=== PATIENT | male | born 1930 | race Caucasian/White ===

== ENCOUNTER 2016-10-28 22:14 | Inpatient (IN) | payer MEDICARE ==
--- NOTE | ~2016-10-28 | CN ---
Consultation Report [facility] [address] [place]. [address] NAME: KEATON STERLING : 30 STATUS : ADM IN PAT#: [id number] AGE: 86 ADM/REG DATE : 10/28/16 MR#: [id number] REPORT SERV DATE: 10/29/16 DICTATED BY: WILLIE WILLIS DATE: 10/29/16 REPORT STATUS : Draft TRANSCRIBED BY: MODL DATE: 10/29/16 CARDIOLOGY CONSULTATION DATE OF CONSULTATION: INDICATION: Increasing falls, question seizure versus syncope, underlying ischemic cardiomyopathy, elevated troponins (0.25) and BNP (400 range). HISTORY: The patient is an 86-year-old gentleman who presented to the emergency room from [facility]. He had fallen and broken his shoulder and after release from the hospital, went to [facility] for further rehabilitation. He has had increasing episodes of dizziness. He believes he was told he may have had a seizure. He has had no PND or orthopnea. His major concern is that his "legs do not work." He states he first had developed weakness in the right lower extremity and then bilaterally. He states with rehab, he has now been able to stand but he does not have a good sense of why his legs are "not working." He has some mild diabetic neuropathy. He has had no lower extremity edema. He has had no chest discomfort, PND, or orthopnea. CURRENT HOME MEDICATIONS: Acetaminophen 650 q.6.h.; amlodipine 5 b.i.d.; 1 b.i.d.; colchicine 0.6 b.i.d.; cyanocobalamin 1000 per day; furosemide 40 a day; galantamine ER 8 mg at bedtime; hydrocodone APAP 5/325 q.6.h. p.r.n.; milk of magnesia 30 p.r.n.; mirtazapine 15 at bedtime; simvastatin 20 at bedtime; sotalol 160 b.i.d.; Carafate 1 g 3 times a day; tamsulosin 0.4 daily; tramadol 50 mg q.6.h. p.r.n.; trazodone 50 at bedtime; and warfarin as directed. ALLERGIES OR INTOLERANCES: Amiodarone (hypothyroidism). SOCIAL HISTORY: Negative for exposure to tobacco or alcohol. FAMILY HISTORY: Negative for coronary disease at a young age. 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 He has had elevated PSAs (greater than 10). He has had previous TIAs with chronic deep white matter ischemic changes. He has congestive heart block. He was upgraded to a WOOL PULLER-D. Pacing device in 2011 after his EF had declined to 30%. His last echo in 2013 shows EF back at 54%. He has persistent atrial fibrillation which is controlled on Betapace. He is on an appropriate anticoagulant therapy for stroke prophylaxis with a MOUNA-VASc score of 4. There is a history of systemic hypertension and hyperlipidemia. In the past, he has had esophagitis with esophageal strictures requiring dilation. He has a hiatal hernia. He has been evaluated by Dr. Ivory in ENT for vertigo. He has a history of gout. He had done in 2015 which were essentially normal. PHYSICAL EXAMINATION: Consultation Report [address] [address] NAME: KEATON STERLING : 30 STATUS : ADM IN [facility]#: [id number] AGE: 86 ADM/REG DATE : 10/28/16 MR#: [id number] REPORT SERV DATE: 10/29/16 DICTATED BY: WILLIE WILLIS DATE: 10/29/16 REPORT STATUS : Draft TRANSCRIBED BY: MODCarlo DATE: 10/29/16 GENERAL: Pleasant 86-year-old white male. VITAL SIGNS: Blood pressure 139/61, pulse 60 and regular, and respirations 18. SKIN: No xanthelasmas. HEENT: Normocephalic. There is no pallor. NECK: JVD is not elevated. CHEST: There is good AP movement. There are no crackles. CARDIAC: S1 normal, S2 is singular. There is no S3 or S4. There is a faint diastolic murmur at the left second interspace. ABDOMEN: Soft. EXTREMITIES: Without edema. No clubbing. NEUROLOGIC: No overt focal deficits. IMPRESSION: Elevated BNP and troponin. The patient appears euvolemic. He is on anticoagulant therapy. He has no antecedent history suggestive of cardiac ischemia and his ECG shows no evidence for acute repolarization changes. I would not pursue further invasive evaluation unless clinical symptoms change. The source of his lower extremity weakness is uncertain. Dr. Weinstein is evaluating this. I agree with his workup thus far. He is also going to check orthostatic blood pressure. I will have his device interrogated. Further recommendations as his course evolves. EDUIN/SHARON Willie Willis M.D. / [id number] CC: Keaton Irizarry Jr, MD Steven Dowlen, M.D. [facility]
--- NOTE | ~2016-10-28 | CN ---
Consultation Report [facility] [address] [place]. [address] NAME: AMBER GARCIA : 30 STATUS : ADM IN [facility]#: [id number] AGE: 86 ADM/REG DATE : 10/28/16 MR#: [id number] REPORT SERV DATE: 11/03/16 DICTATED BY: BRUCE SIMS DATE: 11/03/16 REPORT STATUS : Draft TRANSCRIBED BY: MODL DATE: 11/03/16 INPATIENT CONSULTATION NOTE DATE OF CONSULTATION: 11/03/2016 REASON FOR CONSULTATION: Postoperative urinary retention. HISTORY OF PRESENT ILLNESS: Mr. Garcia is an 86-year-old white gentleman, who was admitted to the hospital last week for syncope with ischemic cardiomyopathy. He had a pacemaker placed on 10/31/2016. Postoperatively, he has suffered from urinary retention and a More catheter was placed. The nurse is not sure how much urine was drained at the time of More catheter placement. The patient has been a long-standing urology patient. He saw Trevor Mortensen in the past and now sees Dr. Kelly. He has been on Flomax for several decades. The patient does not report any increasing urinary difficulties prior to hospital admission. Urology was consulted to assist with the management of the patient. PAST MEDICAL HISTORY: Class 2 chronic kidney disease, BPH, elevated PSA, TIA, congestive heart block, atrial fibrillation, esophageal strictures, hypertension, hyperlipidemia, vertigo, gout. PAST SURGICAL HISTORY: Pacemaker placement, esophageal dilation. FAMILY HISTORY: No urologic problems. SOCIAL HISTORY: Does not drink, smoke, or use illicit drugs. ALLERGIES: AMIODARONE. MEDICATIONS: Aspirin, amiodarone, benazepril, clotrimazole, furosemide, galantamine, Levaquin, magnesium oxide, mirtazapine, phenazopyridine, simvastatin, spironolactone, sucralfate, tamsulosin 0.4 mg daily. REVIEW OF SYSTEMS: Thorough 13-point review of systems were performed by me and if not noted be positive in history of present illness or past medical history, negative. PHYSICAL EXAMINATION: GENERAL: A thin male in no distress. VITAL SIGNS: Temperature 96.9, pulse 79, respiration rate 18, blood pressure 150/81. HEENT: Normocephalic, atraumatic. Eyes are anicteric. Nares are patent. Oropharynx is clear. NECK: Supple. HEART: Regular rate and rhythm. ABDOMEN: Soft, nonpalpable, nontender bladder. No CVA tenderness. Consultation Report [place] [address] [place]. [address] NAME: AMBER GARCIA : 30 STATUS : ADM IN PAT#: [id number] AGE: 86 ADM/REG DATE : 10/28/16 MR#: [id number] REPORT SERV DATE: 11/03/16 DICTATED BY: BRUCE SIMS DATE: 11/03/16 REPORT STATUS : Draft TRANSCRIBED BY: SHARON DATE: 11/03/16 INTEGUMENT: Warm. GENITOURINARY: Indwelling More catheter, draining clear yellow urine to gravity drainage. PSYCHIATRIC: Pleasant and appropriate. LABORATORIES: Creatinine 1.24. Hematocrit 32.6. ASSESSMENT: 1. Postoperative urinary retention. 2. Benign prostatic hyperplasia with obstruction. PLAN: The etiology for his postoperative retention is likely multifactorial including recent anesthesia, narcotics, recumbency, pre-existing BPH, etc. I would recommend leaving the More catheter at least five days total before a voiding trial either here in the hospital or in Dr. Kelly's saw office. I will alert Dr. Kelyl to the patient's presence. My thanks to Dr. Willett for asking me to participate in Mr. Fox's care. RAC/SHARON Bruce Sims M.D. / [id number] CC: Lary Guajardo III, M.D.
--- NOTE | ~2016-10-28 | DS ---
Discharge Summary [facility] [address] [place]. [address] NAME: KEATON STERLING : 30 STATUS : DIS IN PAT#: [id number] AGE: 86 ADM/REG DATE : 10/28/16 MR#: [id number] REPORT SERV DATE: 11/06/16 DICTATED BY: JR. IRIZARRY WILLIAM JOHN DATE: 11/05/16 REPORT STATUS : Draft TRANSCRIBED BY: MODL DATE: 11/05/16 ADMISSION DATE: 10/28/2016 DISCHARGE DATE: 11/05/2016 DISCHARGE DIAGNOSES: Include: 1. Ventricular tachycardia. 2. Status post permanent pacemaker/ICD. 3. Noncritical coronary artery disease with chronic systolic heart failure, ejection fraction of 40%. 4. Urinary retention. 5. Atrial fibrillation. 6. Urinary tract infection with Escherichia coli and Proteus mirabilis. 7. Hyperlipidemia. 8. Hypertension. OPERATIONS, PROCEDURES, AND TREATMENTS: Include: 1. CT of the brain done 10/29/2016, which showed stable atrophy without intracranial bleed. 2. Cardiac catheterization by Dr. Guardado on 11/01/2016 showed [id number] non-flow- limiting coronary disease, the slit like angiography lesion in ostial left main. Intravascular ultrasound demonstrated no evidence of significant atherosclerotic disease in this segment. There was mildly reduced left ventricular systolic function with ejection fraction 40% with global hypokinesis. There was normal left ventricular end-diastolic filling pressure. 3. Echocardiogram done 10/29/2016, technically difficult study with normal left ventricular size and systolic function. Ejection fraction 50% to 55% with mild concentric left ventricular hypertrophy. Normal right ventricular size and systolic function. Severe left atrial enlargement. Aortic valve sclerosis without stenosis. No evidence of pericardial effusion. 4. Chest x-ray done 10/31/2016 showed newly placed PICC line, right tip in good position, stable cardiomegaly, pacemaker/AICD in good position. CONSULTING PHYSICIANS: Include Dr. Willis of Cardiology and Dr. Umanzor of Urology. DISCHARGE MEDICATIONS: Include: 1. Aspirin 325 mg orally daily. 2. Amiodarone 200 mg orally twice a day. 3. Lotensin 10 mg orally daily. 4. Coreg 3.125 daily. 5. Lotrimin topically twice a day. 6. Lasix 20 mg daily. 7. Neurontin 100 twice a day. 8. Razadyne 8 mg at bedtime. 9. Mag oxide 400 daily. 10.Remeron 15 at the hour of sleep. 11.Protonix 40 daily. Discharge Summary [address] [address] NAME: KEATON STERLING : 30 STATUS : DIS IN PAT#: [id number] AGE: 86 ADM/REG DATE : 10/28/16 MR#: [id number] REPORT SERV DATE: 11/06/16 DICTATED BY: JR. IRIZARRY WILLIAM ALMITA DATE: 11/05/16 REPORT STATUS : Draft TRANSCRIBED BY: MODL DATE: 11/05/16 12.Simvastatin 20 daily. 13.Aldactone 12.5 daily. 14.Sucralfate 1 g before meals. 15.Flomax 0.4 daily. 16.Coumadin 5 mg daily. HOSPITAL COURSE: The patient was an 86-year-old gentleman, transferred from [facility] by Dr. Rojas on 10/28/2016. The patient presented to emergency room at [facility] after two to three episodes of a lightheaded falling sensation while at a rehabilitation facility. Initial, workup showed a troponin of 0.19. All other tests were normal. Dr. Melchor of Cardiology was consulted and felt the hospitalist would be most appropriate to handle this transfer. Initial exam showed a temperature of 99.2, heart rate 64, respiratory rate 16, blood pressure 148/53. The physical exam was normal. The patient was admitted to the Hospitalist Service on . Orthostatic vital signs were done. There was some mild orthostasis. His pacemaker was interrogated. It showed shock was initiated on 6 events. The patient subsequently underwent echocardiogram and unfortunately went into a torsades de pointes type of rhythm, handled appropriately by Dr. Kelley. He was seen in consultation by Cardiology, underwent cardiac catheterization with a re-interrogation of his pacemaker. The patient was started on amiodarone and has had no further events. In addition, the patient had urinary retention, was seen by Dr. Umanzor, who recommended starting on Flomax and have a voiding trial in approximately one week by Dr. Kelly. The patient also had a urinary tract infection for which he completed a full dose of Levaquin while in the hospital. The patient also has atrial fibrillations, on Coumadin, which was recently resumed. His INR is presently 1.7. The patient will be discharged to [facility] today 10/28/2016 in good condition. FOLLOWUP ISSUES: 1. Voiding trial in about one week ago by Dr. Kelly. 2. Follow up with Dr. Willis in four weeks. 3. Coumadin monitoring. DIET: Cardiac. ACTIVITY: As tolerated. For discharge exam and laboratory, please see daily progress note. </ADDENDUM/> This discharge took 37 minutes for patient encounter, coordination of care, and documentation. Discharge Summary [place] [id number] [facility] [place]. [address] NAME: KEATON STERLING : 30 STATUS : DIS IN PAT#: [id number] AGE: 86 ADM/REG DATE : 10/28/16 MR#: [id number] REPORT SERV DATE: 11/06/16 DICTATED BY: JR. IRIZARRY WILLIAM JOHN DATE: 11/05/16 REPORT STATUS : Draft TRANSCRIBED BY: SHARON DATE: 11/05/16 GEORGIANA/SHARON Keaton Irizarry Jr, MD / [id number] / [id number] CC: Keaton Irizarry Jr, MD Steven Dowlen, M.D.
--- NOTE | ~2016-10-28 | HP ---
History And Physical [place] [id number] [facility] [place]. [address] NAME: AMBER GARCIA : 30 STATUS : ADM IN [facility]#: [id number] AGE: 86 ADM/REG DATE : 10/28/16 MR#: [id number] REPORT SERV DATE: 10/29/16 DICTATED BY: MANNY BERG DATE: 10/29/16 REPORT STATUS : Draft TRANSCRIBED BY: MODL DATE: 10/29/16 DATE OF ADMISSION: 10/28/2016 CHIEF COMPLAINT: This was a patient I had accepted in transfer from [facility] Emergency Room after I spoke with Dr. Bob levy. HISTORY OF PRESENT ILLNESS: Briefly, the patient presented to the emergency there after two or three episodes in the last day or so of a sensation of falling and lightheadedness. He was in [facility] for rehabilitation after he was released from [facility]. He had had a fall with a broken shoulder. As mentioned above, he had two or three episodes where he was apparently dizzy with a sensation of falling, although he did not actually fall down or pass out. So, he was taken to the emergency room there where he denied having any chest pain, lower extremity edema, or other symptoms. Initial workup showed a troponin of 0.19 and a potassium of 3.9. All other tests were within normal limits. His chest x-ray was unremarkable. EKG showed a paced rhythm. They had initially spoken with Dr. Melchor, chip tester, and she felt that it will be best if the hospitalist admitted this patient. At that time, his blood pressure was 140/60, heart rate 60, and room air oxygen saturations were 97%. They had called us to accept him in transfer. At the time of my evaluation here after he arrived, he denied any chest pain, palpitations, or orthopnea. He had no cough, hemoptysis, night sweats, or weight loss. He has not had any recent falls or loss of consciousness, although he had 3 syncopal episodes. He had no fevers, chills, nausea, vomiting, diarrhea, or diaphoresis. He had no hematemesis, hematochezia, or hematuria. No other history of recent travel or exposures other than those mentioned above. PAST MEDICAL HISTORY: Significant for history of hypertension, coronary artery disease with a CAD, catheterization done in 2012, history of systolic heart failure with an ejection fraction of 30%. He also has a biventricular AICD placed, history of BPH and dyslipidemia. He has history of atrial fibrillation, on anticoagulation with warfarin. SOCIAL HISTORY: He does not smoke, drink, or use recreational drugs. FAMILY HISTORY: Noncontributory. MEDICATIONS: At home were reviewed by me in the chart today and reordered by me. REVIEW OF SYSTEMS: As in the history of present illness. All other systems were reviewed in detail and are quite unremarkable. PHYSICAL EXAMINATION: GENERAL: This is a pleasant 86-year-old gentleman, not in any acute distress. HEENT: Head is atraumatic, normocephalic. He is alert, awake, oriented to time, place, and person. His pupils are equal, reacting to light and accommodating. External ocular muscles are intact. Membranes are moist and pink. Sclerae are nonicteric. History And Physical [address] [address] NAME: AMBER GARCIA : 30 STATUS : ADM IN [facility]#: [id number] AGE: 86 ADM/REG DATE : 10/28/16 MR#: [id number] REPORT SERV DATE: 10/29/16 DICTATED BY: MANNY BERG DATE: 10/29/16 REPORT STATUS : Draft TRANSCRIBED BY: SHARON DATE: 10/29/16 NECK: Supple with no jugular venous distention, lymphadenopathy, or thyromegaly. LUNGS: Clear to auscultation with no wheezes, rubs, or crackles. HEART: Heart sounds were regular with no murmurs, rubs, or gallops. ABDOMEN: Soft, nontender. Bowel sounds are present. EXTREMITIES: Showed no cyanosis, clubbing, or edema. NEUROLOGIC: Grossly intact. No focal sensory or motor deficits. Higher functions appeared intact. VITAL SIGNS: Here showed a temperature of 99.2, pulse 64, respirations 16, blood pressure was 148/53, oxygen saturations were 93% on room air. LABORATORY DATA: Laboratory data and other information that accompanied the patient from [facility] were reviewed by me in the chart today. IMPRESSION: 1. Presyncope. 2. Elevated troponin. 3. Hypertension. 4. Coronary artery disease. 5. History of systolic congestive heart failure with an ejection fraction of 30%. 6. Biventricular automatic implantable-cardioverter defibrillator placement. 7. Chronic atrial fibrillation, on anticoagulation. 8. Hypokalemia. PLAN: We will admit Mr. Garcia to the Hospitalist Service with telemetry for a 24-hour observation. We will follow serial troponin levels. Consult Cardiology with Dr. Willis, see him in the morning. We will go ahead and get an echocardiogram in the morning and check his BNP. We will also need to check his PT and INR right away and then start him on heparin if he is subtherapeutic. Otherwise, we will hold his warfarin for now. We will check chemistry, electrolytes, and replace in the morning. I have discussed the above plans with the patient, his questions were answered, and he is agreeable to the above recommendations. Hospitalist Service will be following him during his stay here. MARY Manny Berg M.D. / [id number]
--- NOTE | ~2016-10-28 | IDS ---
Interim Discharge Summary [facility] [address] [place]. [address] NAME: AMBER GARCIA : 30 STATUS : ADM IN PAT#: [id number] AGE: 86 ADM/REG DATE : 10/28/16 MR#: [id number] REPORT SERV DATE: 11/04/16 DICTATED BY: ARLETH BAUTISTA DATE: 11/03/16 REPORT STATUS : Draft TRANSCRIBED BY: MODL DATE: 11/03/16 ADMISSION DATE: 10/28/2016 DISCHARGE DATE: DISCHARGE DIAGNOSES: 1. Ventricular tachycardia, currently silent on amiodarone, status post automated implantable cardioverter-defibrillator and shocks with normal device function, status post cardiac catheterization performed during this hospitalization on 11/01/2016 showing mild to moderate non-flow limiting coronary artery disease, mild reduced left ventricular systolic function with ejection fraction 40% with global hypokinesis and normal left ventricular end-diastolic filling pressure. 2. History of atrial fibrillation, on Coumadin anticoagulation. 3. Chronic congestive heart failure, [place] functional class 3. 4. Hypertension. 5. Status post pacer and automated implantable cardioverter-defibrillator. 6. Hyperlipidemia. 7. Urinary tract infection. 8. Urinary retention. 9. History of gout. 10.BPH. 11.Bilateral lower extremity pain, probable peripheral neuropathy. 12.Gout. CONSULTANTS ON THE CASE: 1. Devonte Willis M.D. 2. Hailee Melchor M.D., Cardiology. 3. Urology, Dr. Kelly. 4. He has been seen by Dr. Deluna, Urology. PROCEDURES DONE DURING THIS HOSPITALIZATION: Include cardiac catheterization performed on 11/01/2016 showing nonobstructive coronary artery disease, also on pacemaker interrogation as well. Also during this hospitalization, the patient underwent chest x-ray for PICC line placement, portable on 10/31/[address] of the brain without contrast on 10/29/2016 showing no acute intracranial abnormalities identified. Also, the patient has been having initial troponin of 0.25, 0.1, and 0.16. His TSH was 0.289. His PSA was 11.8. His BNP 412. His white count was 6.5, hemoglobin 10.9, hematocrit 32.6, platelets 190. His INR was 1.4. His UA has been positive. His urine cultures grew on admission E. coli and Proteus mirabilis, sensitive to fluoroquinolone. HOSPITAL COURSE: Mr. Garcia is an 86 years old gentleman, who has been admitted on 10/29/[address] Weinstein's service as a transfer from [facility] Emergency Room for episodes of lightheadedness and near syncope that has been reported at the [facility], where he has been discharged after he has been released from [facility] for rehabilitation. He had couple of weeks ago a fall with broken right shoulder and since the fall, he went to [facility] for inpatient rehab. As mentioned, he did there have some episodes of near syncope. He had been taken to the emergency room there and Interim Discharge Summary [address] [address] NAME: AMBER GARCIA : 30 STATUS : ADM IN PAT#: [id number] AGE: 86 ADM/REG DATE : 10/28/16 MR#: [id number] REPORT SERV DATE: 11/04/16 DICTATED BY: ARLETH BAUTISTA DATE: 11/03/16 REPORT STATUS : Draft TRANSCRIBED BY: SHARON DATE: 11/03/16 the past initial workup showed a troponin of 0.19 and as a result, after talking with Dr. Melchor, Cardiology, it was felt that the patient has to be transferred to [facility] and admitted to Hospitalist Service. The patient had been admitted initially to telemetry observation under Dr. Chito Weinstein service. He underwent a CT scan of the brain, which has been negative and an echo has been ordered as well. His pacemaker has been interrogated and during the stay in the CDU, the patient went in multifocal ventricular tachycardia, prompted patient to be transferred to the CCU and consult Cardiology while the patient has been transferred to CCU by Dr. Jass Kelley, who was continuing to see the patient. He has been seen by Dr. Willis. The patient has been placed on amiodarone drip and then he has been scheduled for a cardiac catheterization. The patient underwent a cardiac catheterization with Dr. Guardado on 11/01/2016 showing just [id number], no flow-limiting coronary artery disease and an ejection fraction of 40% with global hypokinesis. For his polymorphic ventricular tachycardia, he has been changed to amiodarone drip, is unclear if sotalol that patient was on before this episode has started could contribute to these, but nevertheless, the patient has been taken off sotalol and placed on amiodarone drip and currently, his ventricular tachycardia has been silent on amiodarone drip. The patient developed some urinary retention. His More has been discontinued in the ICU, but he has been replaced due to his urinary retention. He does have a history of BPH, so Dr. Deluna from Urology Service has seen the patient and recommended for right now keep the More catheter for at least 5 days before voiding trials, either in hospital or in Dr. Kelly's office and continue Flomax. He has been diagnosed with urinary tract infection on admission. He has been placed on Levaquin on 10/31/2016 and he is continuing to receive Levaquin. The patient has been transferred from the CCU to floor on 11/03/2016 when I resumed care of the patient. He is extremely weak, and he has these bilateral lower extremity pain and weakness and he said in his last fall, the legs were not working properly. He does have possibly some peripheral neuropathy, and he does have a history of gout. It is important to know that it started when patient had significant bilateral lower extremity edema. He does not have the extremity edema any longer, but he still has these bilateral lower extremity pain and weakness. We have placed the patient on lower doses of steroids as well as some Neurontin, and PT evaluation and treatment has been requested as well. We have restarted him on Coumadin today, and we will place a rifle case repairer consult for [facility] facility re- evaluation. CURRENT MEDICATIONS: Include: Cordarone, aspirin, Lotensin, Lasix, galantamine, Levaquin, magnesium oxide, Remeron, phenazopyridine, prednisone, Zocor, Aldactone, Carafate, Flomax, and Neurontin. My partner is going to start seeing Mr. Jose Solorio from 11/05/2016. CF/MODL Arleth Bautista M.D. / [id number] Interim Discharge Summary [place] [address] [facility] [id number] NAME: AMBER GARCIA : 30 STATUS : ADM IN PAT#: [id number] AGE: 86 ADM/REG DATE : 10/28/16 MR#: [id number] REPORT SERV DATE: 11/04/16 DICTATED BY: ARLETH BAUTISTA DATE: 11/03/16 REPORT STATUS : Draft TRANSCRIBED BY: MODCarlo DATE: 11/03/16 CC: Lary Jarrett M.D.
[~2016-10-28 22:14] MED LIST: ACT300 PO; BENICAR HCT1 TA2 PO; BETAP120 PO; BETAPACE160 MG PO; BETAPACE80 PO; COREG12 PO; COREG25 PO; COZ50 PO; FLOMAX4 PO; HYZAAR 100/25 T1 TAB PO; HYZAAR 50/12.51 TAB PO; JANTOVEN4 MG PO; KAPIDEX60 MG PO; LIPITOR10 PO; PRILO PO; SLOWMAG PO; SPIRO25 PO; SPIRO50 PO; SUCR PO; TOPXL100 PO; ZANTAC 150 PO; ZANTAC150 MG PO; ZOCOR20 PO; ZOCOR40 PO
[2016-10-29] MEDS ORDERED: NORV5 PO (00:17)
[2016-10-29] MEDS ORDERED: LOTRIMIN-MYCELE15 GM TOP (00:17)
[2016-10-29] MEDS ORDERED: COLCH6 PO (00:18)
[2016-10-29] MEDS ORDERED: B121000P SC (00:19)
[2016-10-29] MEDS ORDERED: RAZAER8 PO (00:20)
[2016-10-29] MEDS ORDERED: L40 PO (00:20)
[2016-10-29] MEDS ORDERED: REM15 PO (00:21)
[2016-10-29] MEDS ORDERED: NORCO1 TA1 PO ×2 (00:21→00:28)
[2016-10-29] MEDS ORDERED: ZOCOR20 PO (00:23)
[2016-10-29] MEDS ORDERED: BETAPACE160 MG PO (00:23)
[2016-10-29] MEDS ORDERED: SUCR PO (00:24)
[2016-10-29] MEDS ORDERED: FLOMAX4 PO (00:24)
[2016-10-29] MEDS ORDERED: C1 PO (00:26)
[2016-10-29] MEDS ORDERED: COUMADIN3 MG PO (00:26)
[2016-10-29] MEDS ORDERED: 8 HOUR650 MG PO (00:27)
[2016-10-29] MEDS ORDERED: MOMUD PO (00:29)
[2016-10-29] MEDS ORDERED: ULTRAM50 PO (00:29)
[2016-10-29] MEDS ORDERED: TRAZ50 PO (00:29)
[2016-10-29 02:06] LABS: CALCIUM, SERUM 8.7 MG/DL (8.5-10.4); CHLORIDE, SERUM 103 MMOL/L (96-112); CO2 (CARBON DIOXIDE) 30 MMOL/L (24-34); SGOT(AST) 14 U/L (5-40); SGPT(ALT) 23 U/L (5-65); SODIUM, SERUM 143 MMOL/L (135-148); TOTAL BILIRUBIN 0.9 MG/DL (0-1.2); TOTAL PROTEIN 6.7 G/DL (6.0-8.5)
[2016-10-29 02:08] LABS: A/G RATIO 0.7 (0.7-1.9); ALBUMIN 2.8 G/DL (3.5-5.0); ALKALINE PHOSPHATASE 102 U/L (45-117); BUN (BLOOD UREA NITROGEN) 12 MG/DL (6-23); CREATININE 1.19 MG/DL (0.70-1.30); GFR AFRICAN AMERICAN 64 ML/MIN (>=60); GFR NON AFRICAN AMERICAN 55 ML/MIN (>=60); GLOBULIN 3.9 G/DL (2.5-4.1); GLUCOSE, SERUM 93 MG/DL (60-99); POTASSIUM, SERUM 3.2 MMOL/L (3.5-5.3)
[2016-10-29 02:09] LABS: TROPONIN I 0.25 NG/ML (<0.05)
[2016-10-29 06:10] LABS: BASOPHILS 0.2 %; BASOPHILS ABSOLUTE 0.02 10/3/uL (0.0-0.16); EOSINOPHILS 0.4 %; EOSINOPHILS ABSOLUTE 0.04 10/3/uL (0.0-0.53); IMMATURE GRANULOCYTES 0.2 %; IMMATURE GRANULOCYTES ABSOLUTE 0.02 10/3/uL (0.0-0.11); LYMPHOCYTES 16.1 %; LYMPHOCYTES ABSOLUTE 1.53 10/3/uL (0.67-4.30); MEAN CORPUS HGB CONC 33.7 g/dL (32.0-36.0); MEAN CORPUSCULAR HEMOGLOB 28.2 pg (26.0-34.0); MEAN PLATELET VOLUME 9.2 fL (9.2-13.0); MONOCYTES 7.9 %; MONOCYTES ABSOLUTE 0.75 10/3/uL (0.21-1.20); NEUTROPHILS 75.2 %; NEUTROPHILS ABSOLUTE 7.14 10/3/uL (2.02-8.40); RBC DISTRIBUTION WIDTH 14.1 % (12.0-16.0); RED CELL COUNT 3.65 10/6/uL (4.7-6.1); WHITE BLOOD CELLS 9.5 10/3/uL (4.5-10.5)
[2016-10-29 06:12] LABS: HEMATOCRIT 30.6 % (40.0-51.0); HEMOGLOBIN 10.3 g/dL (13.6-17.8); MANUAL DIFF NO %; MEAN CORPUSCULAR VOLUME 83.8 fL (80-100); PLATELET COUNT 182 10/3/uL (150-400)
[2016-10-29 06:17] LABS: INTERNATIONAL NORMAL RATI 2.2 UNITS (-); PROTIME (NOT ORD) 23.9 SEC (12.0-14.5)
[2016-10-29 06:30] LABS: BUN (BLOOD UREA NITROGEN) 11 MG/DL (6-23); CALCIUM, SERUM 8.2 MG/DL (8.5-10.4); CHLORIDE, SERUM 106 MMOL/L (96-112); CO2 (CARBON DIOXIDE) 31 MMOL/L (24-34); CREATININE 1.15 MG/DL (0.70-1.30); GFR AFRICAN AMERICAN 66 ML/MIN (>=60); GFR NON AFRICAN AMERICAN 57 ML/MIN (>=60); GLUCOSE, SERUM 93 MG/DL (60-99); POTASSIUM, SERUM 3.5 MMOL/L (3.5-5.3); SODIUM, SERUM 144 MMOL/L (135-148)
[2016-10-29 06:31] LABS: TROPONIN I 0.21 NG/ML (<0.05)
[2016-10-29 12:58] LABS: ULTRASENSITIVE TSH 0.289 MCIU/ML (0.358-3.740)
[2016-10-30 05:34] LABS: BASOPHILS 0.1 %; BASOPHILS ABSOLUTE 0.01 10/3/uL (0.0-0.16); EOSINOPHILS 1.1 %; EOSINOPHILS ABSOLUTE 0.08 10/3/uL (0.0-0.53); HEMATOCRIT 31.9 % (40.0-51.0); HEMOGLOBIN 10.6 g/dL (13.6-17.8); IMMATURE GRANULOCYTES 0.4 %; IMMATURE GRANULOCYTES ABSOLUTE 0.03 10/3/uL (0.0-0.11); LYMPHOCYTES 21.1 %; LYMPHOCYTES ABSOLUTE 1.51 10/3/uL (0.67-4.30); MEAN CORPUS HGB CONC 33.2 g/dL (32.0-36.0); MEAN CORPUSCULAR HEMOGLOB 28.4 pg (26.0-34.0); MEAN CORPUSCULAR VOLUME 85.5 fL (80-100); MEAN PLATELET VOLUME 9.3 fL (9.2-13.0); MONOCYTES 9.7 %; MONOCYTES ABSOLUTE 0.69 10/3/uL (0.21-1.20); NEUTROPHILS 67.6 %; NEUTROPHILS ABSOLUTE 4.83 10/3/uL (2.02-8.40); PLATELET COUNT 193 10/3/uL (150-400); RBC DISTRIBUTION WIDTH 14.1 % (12.0-16.0); RED CELL COUNT 3.73 10/6/uL (4.7-6.1); WHITE BLOOD CELLS 7.2 10/3/uL (4.5-10.5)
[2016-10-30 05:36] LABS: INTERNATIONAL NORMAL RATI 2.1 UNITS (-); MANUAL DIFF NO %; PROTIME (NOT ORD) 23.6 SEC (12.0-14.5)
[2016-10-30 05:43] LABS: BUN (BLOOD UREA NITROGEN) 13 MG/DL (6-23); CALCIUM, SERUM 8.4 MG/DL (8.5-10.4); CHLORIDE, SERUM 108 MMOL/L (96-112); CO2 (CARBON DIOXIDE) 30 MMOL/L (24-34); CREATININE 1.12 MG/DL (0.70-1.30); GFR AFRICAN AMERICAN 69 ML/MIN (>=60); GFR NON AFRICAN AMERICAN 59 ML/MIN (>=60); GLUCOSE, SERUM 93 MG/DL (60-99); POTASSIUM, SERUM 3.3 MMOL/L (3.5-5.3); SODIUM, SERUM 145 MMOL/L (135-148)
[2016-10-30 15:36] LABS: OSMOLALITY, URINE 409 MOSM/KG (50-1200)
[2016-10-31 04:23] LABS: INTERNATIONAL NORMAL RATI 2.5 UNITS (-); PROTIME (NOT ORD) 26.5 SEC (12.0-14.5)
[2016-10-31 04:32] LABS: BUN (BLOOD UREA NITROGEN) 13 MG/DL (6-23); CALCIUM, SERUM 8.3 MG/DL (8.5-10.4); CHLORIDE, SERUM 104 MMOL/L (96-112); CREATININE 1.08 MG/DL (0.70-1.30); GFR AFRICAN AMERICAN 72 ML/MIN (>=60); GFR NON AFRICAN AMERICAN 62 ML/MIN (>=60); GLUCOSE, SERUM 88 MG/DL (60-99); POTASSIUM, SERUM 3.8 MMOL/L (3.5-5.3); SODIUM, SERUM 139 MMOL/L (135-148)
[2016-10-31 04:34] LABS: CO2 (CARBON DIOXIDE) 25 MMOL/L (24-34)
[2016-10-31 11:47] LABS: ASCORBIC ACID (UR NOT ORDER) NEG (NEG); BILIRUBIN, URINE NEGATIVE (NEG); KETONE, URINE NEGATIVE (NEG); LEUKOCYTE ESTERASE(NOT OR MOD (NEG)
[2016-10-31 11:50] LABS: WBC (NOT ORDERED) (RFLEX) > 182 (0-5)
[2016-10-31 13:38] LABS: INTERNATIONAL NORMAL RATI 1.9 UNITS (-)
[2016-10-31 13:41] LABS: PROTIME (NOT ORD) 21.2 SEC (12.0-14.5)
[2016-11-01 04:44] LABS: BASOPHILS 0.1 %; BASOPHILS ABSOLUTE 0.01 10/3/uL (0.0-0.16); EOSINOPHILS 0.4 %; EOSINOPHILS ABSOLUTE 0.04 10/3/uL (0.0-0.53); HEMOGLOBIN 11.6 g/dL (13.6-17.8); IMMATURE GRANULOCYTES 0.5 %; IMMATURE GRANULOCYTES ABSOLUTE 0.05 10/3/uL (0.0-0.11); LYMPHOCYTES 12.8 %; LYMPHOCYTES ABSOLUTE 1.39 10/3/uL (0.67-4.30); MEAN CORPUS HGB CONC 32.9 g/dL (32.0-36.0); MEAN CORPUSCULAR HEMOGLOB 28.2 pg (26.0-34.0); MEAN CORPUSCULAR VOLUME 85.7 fL (80-100); MEAN PLATELET VOLUME 9.7 fL (9.2-13.0); MONOCYTES 5.9 %; MONOCYTES ABSOLUTE 0.64 10/3/uL (0.21-1.20); NEUTROPHILS 80.3 %; NEUTROPHILS ABSOLUTE 8.69 10/3/uL (2.02-8.40); PLATELET COUNT 223 10/3/uL (150-400); RBC DISTRIBUTION WIDTH 14.1 % (12.0-16.0); RED CELL COUNT 4.12 10/6/uL (4.7-6.1)
[2016-11-01 04:46] LABS: HEMATOCRIT 35.3 % (40.0-51.0); MANUAL DIFF NO %; WHITE BLOOD CELLS 10.8 10/3/uL (4.5-10.5)
[2016-11-01 04:55] LABS: INTERNATIONAL NORMAL RATI 1.4 UNITS (-)
[2016-11-01 05:00] LABS: PROTIME (NOT ORD) 17.3 SEC (12.0-14.5)
[2016-11-01 05:08] LABS: BUN (BLOOD UREA NITROGEN) 16 MG/DL (6-23); CHLORIDE, SERUM 105 MMOL/L (96-112); CO2 (CARBON DIOXIDE) 26 MMOL/L (24-34); CREATININE 1.09 MG/DL (0.70-1.30); GFR AFRICAN AMERICAN 71 ML/MIN (>=60); GFR NON AFRICAN AMERICAN 61 ML/MIN (>=60); GLUCOSE, SERUM 96 MG/DL (60-99); HDL CHOLESTEROL 40 MG/DL (> 39); POTASSIUM, SERUM 3.7 MMOL/L (3.5-5.3); SODIUM, SERUM 142 MMOL/L (135-148)
[2016-11-01 05:11] LABS: CHOL/HDL RATIO(NOT ORDER) 2.7 (0-5); CHOLESTEROL 107 MG/DL (< 200); LDL CHOLESTEROL 51 MG/DL (< 130); NON-HDL CHOLESTEROL 67 MG/DL (< 160); TRIGLYCERIDE 84 MG/DL (< 150)
[2016-11-01 09:37] LABS: ASCORBIC ACID (UR NOT ORDER) NEG (NEG); BILIRUBIN, URINE NEGATIVE (NEG); KETONE, URINE TRACE MG/DL (NEG); LEUKOCYTE ESTERASE(NOT OR MOD (NEG); WBC (NOT ORDERED) (RFLEX) 41 (0-5)
[2016-11-02 04:22] LABS: BASOPHILS 0.1 %; BASOPHILS ABSOLUTE 0.01 10/3/uL (0.0-0.16); EOSINOPHILS ABSOLUTE 0.08 10/3/uL (0.0-0.53); HEMOGLOBIN 10.5 g/dL (13.6-17.8); IMMATURE GRANULOCYTES 0.4 %; IMMATURE GRANULOCYTES ABSOLUTE 0.03 10/3/uL (0.0-0.11); LYMPHOCYTES 14.9 %; LYMPHOCYTES ABSOLUTE 1.16 10/3/uL (0.67-4.30); MEAN CORPUS HGB CONC 33.4 g/dL (32.0-36.0); MEAN CORPUSCULAR VOLUME 83.7 fL (80-100); MEAN PLATELET VOLUME 9.2 fL (9.2-13.0); MONOCYTES 8.7 %; MONOCYTES ABSOLUTE 0.68 10/3/uL (0.21-1.20); NEUTROPHILS 74.9 %; NEUTROPHILS ABSOLUTE 5.82 10/3/uL (2.02-8.40); PLATELET COUNT 185 10/3/uL (150-400); RBC DISTRIBUTION WIDTH 14.3 % (12.0-16.0); RED CELL COUNT 3.75 10/6/uL (4.7-6.1); WHITE BLOOD CELLS 7.8 10/3/uL (4.5-10.5)
[2016-11-02 04:27] LABS: INTERNATIONAL NORMAL RATI 1.4 UNITS (-); PROTIME (NOT ORD) 17.4 SEC (12.0-14.5)
[2016-11-02 04:35] LABS: HEMATOCRIT 31.4 % (40.0-51.0); MANUAL DIFF NO %
[2016-11-02 04:39] LABS: BUN (BLOOD UREA NITROGEN) 14 MG/DL (6-23); CALCIUM, SERUM 8.7 MG/DL (8.5-10.4); CHLORIDE, SERUM 106 MMOL/L (96-112); CO2 (CARBON DIOXIDE) 24 MMOL/L (24-34); CREATININE 0.97 MG/DL (0.70-1.30); GFR AFRICAN AMERICAN 82 ML/MIN (>=60); GFR NON AFRICAN AMERICAN 70 ML/MIN (>=60); GLUCOSE, SERUM 115 MG/DL (60-99); POTASSIUM, SERUM 3.8 MMOL/L (3.5-5.3); SODIUM, SERUM 141 MMOL/L (135-148)
[2016-11-03 05:20] LABS: BASOPHILS 0 %; EOSINOPHILS 0.2 %; EOSINOPHILS ABSOLUTE 0.01 10/3/uL (0.0-0.53); HEMATOCRIT 32.6 % (40.0-51.0); HEMOGLOBIN 10.9 g/dL (13.6-17.8); IMMATURE GRANULOCYTES 1.1 %; IMMATURE GRANULOCYTES ABSOLUTE 0.07 10/3/uL (0.0-0.11); LYMPHOCYTES 11.5 %; LYMPHOCYTES ABSOLUTE 0.75 10/3/uL (0.67-4.30); MEAN CORPUS HGB CONC 33.4 g/dL (32.0-36.0); MEAN CORPUSCULAR HEMOGLOB 27.8 pg (26.0-34.0); MEAN CORPUSCULAR VOLUME 83.2 fL (80-100); MEAN PLATELET VOLUME 9.1 fL (9.2-13.0); MONOCYTES 2.3 %; MONOCYTES ABSOLUTE 0.15 10/3/uL (0.21-1.20); NEUTROPHILS 84.9 %; NEUTROPHILS ABSOLUTE 5.56 10/3/uL (2.02-8.40); PLATELET COUNT 190 10/3/uL (150-400); RBC DISTRIBUTION WIDTH 14.5 % (12.0-16.0); RED CELL COUNT 3.92 10/6/uL (4.7-6.1); WHITE BLOOD CELLS 6.5 10/3/uL (4.5-10.5)
[2016-11-03 05:26] LABS: MANUAL DIFF NO %
[2016-11-03 05:34] LABS: BUN (BLOOD UREA NITROGEN) 13 MG/DL (6-23); CALCIUM, SERUM 8.8 MG/DL (8.5-10.4); CHLORIDE, SERUM 107 MMOL/L (96-112); CO2 (CARBON DIOXIDE) 25 MMOL/L (24-34); CREATININE 1.24 MG/DL (0.70-1.30); GFR AFRICAN AMERICAN 61 ML/MIN (>=60); GFR NON AFRICAN AMERICAN 52 ML/MIN (>=60); SODIUM, SERUM 143 MMOL/L (135-148)
[2016-11-03 05:35] LABS: GLUCOSE, SERUM 143 MG/DL (60-99); POTASSIUM, SERUM 4.8 MMOL/L (3.5-5.3)
[2016-11-04 08:04] LABS: BASOPHILS 0 %; EOSINOPHILS 0 %; HEMATOCRIT 33.7 % (40.0-51.0); HEMOGLOBIN 11.1 g/dL (13.6-17.8); IMMATURE GRANULOCYTES 1.1 %; IMMATURE GRANULOCYTES ABSOLUTE 0.11 10/3/uL (0.0-0.11); LYMPHOCYTES 10.3 %; MEAN CORPUS HGB CONC 32.9 g/dL (32.0-36.0); MEAN CORPUSCULAR HEMOGLOB 27.8 pg (26.0-34.0); MEAN CORPUSCULAR VOLUME 84.5 fL (80-100); MEAN PLATELET VOLUME 9.3 fL (9.2-13.0); MONOCYTES 6.2 %; NEUTROPHILS 82.4 %; NEUTROPHILS ABSOLUTE 8.04 10/3/uL (2.02-8.40); PLATELET COUNT 222 10/3/uL (150-400); RBC DISTRIBUTION WIDTH 14.3 % (12.0-16.0); RED CELL COUNT 3.99 10/6/uL (4.7-6.1)
[2016-11-04 08:05] LABS: WHITE BLOOD CELLS 9.8 10/3/uL (4.5-10.5)
[2016-11-04 08:09] LABS: INTERNATIONAL NORMAL RATI 1.3 UNITS (-); PROTIME (NOT ORD) 16.3 SEC (12.0-14.5)
[2016-11-04 08:32] LABS: BUN (BLOOD UREA NITROGEN) 15 MG/DL (6-23); CALCIUM, SERUM 8.4 MG/DL (8.5-10.4); CHLORIDE, SERUM 106 MMOL/L (96-112); CO2 (CARBON DIOXIDE) 26 MMOL/L (24-34); CREATININE 1.16 MG/DL (0.70-1.30); GFR AFRICAN AMERICAN 66 ML/MIN (>=60); GFR NON AFRICAN AMERICAN 57 ML/MIN (>=60); GLUCOSE, SERUM 135 MG/DL (60-99); POTASSIUM, SERUM 4.2 MMOL/L (3.5-5.3); SODIUM, SERUM 142 MMOL/L (135-148)
[2016-11-05 05:08] LABS: HEMATOCRIT 32.9 % (40.0-51.0); HEMOGLOBIN 10.7 g/dL (13.6-17.8); MEAN CORPUS HGB CONC 32.5 g/dL (32.0-36.0); MEAN CORPUSCULAR HEMOGLOB 27.7 pg (26.0-34.0); MEAN CORPUSCULAR VOLUME 85.2 fL (80-100); MEAN PLATELET VOLUME 9.2 fL (9.2-13.0); PLATELET COUNT 223 10/3/uL (150-400); RBC DISTRIBUTION WIDTH 14.5 % (12.0-16.0); RED CELL COUNT 3.86 10/6/uL (4.7-6.1); WHITE BLOOD CELLS 8.9 10/3/uL (4.5-10.5)
[2016-11-05 05:11] LABS: INTERNATIONAL NORMAL RATI 1.7 UNITS (-); MANUAL DIFF YES %; PROTIME (NOT ORD) 20.2 SEC (12.0-14.5)
[2016-11-05 05:15] LABS: CALCIUM, SERUM 9.1 MG/DL (8.5-10.4); CHLORIDE, SERUM 108 MMOL/L (96-112); CO2 (CARBON DIOXIDE) 26 MMOL/L (24-34); CREATININE 1.28 MG/DL (0.70-1.30); GFR AFRICAN AMERICAN 58 ML/MIN (>=60); GFR NON AFRICAN AMERICAN 50 ML/MIN (>=60); POTASSIUM, SERUM 4.2 MMOL/L (3.5-5.3); SODIUM, SERUM 144 MMOL/L (135-148)
[2016-11-05 05:17] LABS: BUN (BLOOD UREA NITROGEN) 21 MG/DL (6-23); GLUCOSE, SERUM 104 MG/DL (60-99)
[2016-11-05 05:33] LABS: BAND NEUTROPHILS 2 %; IMMATURE GRANS ABSOLUTE (CALC) 0.18 10/3/uL (0.0-0.11); LYMPHOCYTES 16 %; LYMPHOCYTES ABSOLUTE (CALC) 1.42 10/3/uL (0.67-4.30); METAMYELOCYTES 1 %; MONOCYTES 5 %; MONOCYTES ABSOLUTE (CALC) 0.45 10/3/uL (0.21-1.20); MYELOCYTES 1 %; NEUTROPHILS ABSOLUTE (CALC) 6.85 10/3/uL (2.02-8.40); SEGMENTED NEUTROPHIL (0) 75 %; TOTAL NUCLEATED CELLS 100
[2016-11-05 05:36] LABS: PLATELET ESTIMATE ADQ (ADEQUATE); POIKILOCYTOSIS 1+ (5-10/OIF) (0-5/OIF)
[2017-02-28] MEDS ORDERED: L20 PO (13:48)
[2017-02-28] MEDS ORDERED: C1 PO (13:58)
[2017-02-28] MEDS ORDERED: REM15 PO (14:00)
[2017-02-28] MEDS ORDERED: DUONEB INH (14:03)
[2017-02-28] MEDS ORDERED: SILTUSSIN100 MG/5 M PO (14:05)
[2017-02-28] MEDS ORDERED: MOMUD PO (14:06)
[2017-02-28] MEDS ORDERED: ULTRAM50 PO (14:06)
[2017-02-28] MEDS ORDERED: DSS PO (14:07)
[2017-02-28] MEDS ORDERED: CYMBALTA30 PO (14:11)
== END 2016-11-05 17:02 | DRG 287 ==
LOC: CDU2 22:14 → CCU 10-31 09:25 → 5NO 11-02 16:24
PROVIDERS: Internal Medicine; Internal Medicine Cardiovascular Disease; Internal Medicine Clinical Cardiac Electrophysiology; Internal Medicine Critical Care Medicine
PROC: 4B02XTZ Measurement of Cardiac Defibrillator, External Approach (ICD-10-PCS; principal; 2016-10-29)
PROC: 4B02XTZ Measurement of Cardiac Defibrillator, External Approach (ICD-10-PCS; 2016-10-31)
PROC: 4A023N7 Measurement of Cardiac Sampling and Pressure, Left Heart, Percutaneous Approach (ICD-10-PCS; 2016-10-31)
PROC: 02HV33Z Insertion of Infusion Device into Superior Vena Cava, Percutaneous Approach (ICD-10-PCS; 2016-10-31)
PROC: B2111ZZ Fluoroscopy of Multiple Coronary Arteries using Low Osmolar Contrast (ICD-10-PCS; 2016-11-01)
PROC: B2151ZZ Fluoroscopy of Left Heart using Low Osmolar Contrast (ICD-10-PCS; 2016-11-01)
PROC: B240ZZ3 Ultrasonography of Single Coronary Artery, Intravascular (ICD-10-PCS; 2016-11-01)
PROC: B3111ZZ Fluoroscopy of Right Brachiocephalic-Subclavian Artery using Low Osmolar Contrast (ICD-10-PCS; 2016-11-01)
DX: I47.2 Ventricular tachycardia (principal); N39.0 Urinary tract infection, site not specified; I50.22 Chronic systolic (congestive) heart failure; I11.0 Hypertensive heart disease with heart failure; R55 Syncope and collapse; Z95.810 Presence of automatic (implantable) cardiac defibrillator; E87.6 Hypokalemia; E83.42 Hypomagnesemia; I25.10 Atherosclerotic heart disease of native coronary artery without angina pectoris; N40.1 Benign prostatic hyperplasia with lower urinary tract symptoms; R33.8 Other retention of urine; B96.20 Unspecified Escherichia coli [E. coli] as the cause of diseases classified elsewhere; Z79.01 Long term (current) use of anticoagulants; B96.4 Proteus (mirabilis) (morganii) as the cause of diseases classified elsewhere; G62.9 Polyneuropathy, unspecified
CPT/HCPCS: 36569; 70450; 80048; 80053; 80061; 81001; 82607; 83735; 83880; 83935; 84100; 84133; 84153; 84443; 84484; 84550; 85025; 85610; 85730; 87077; 87086; 87186; 87641; 92978; 93005; 93458; 97162-GP; 99152; 99153; A9270-GY; C1751; C1753; C1769; C1887; C1894; C8929; G8978-CK-GP; G8979-CK-GP; G8980-CK-GP; J0282; J2250; J3010; J3430; Q9957; Q9967

== ENCOUNTER 2016-11-18 10:23 | Inpatient (IN) | payer MEDICARE ==
--- NOTE | ~2016-11-18 | CN ---
Consultation Report [facility] [address] [place]. [address] NAME: AMBER STERLING : 30 STATUS : ADM IN PAT#: [id number] AGE: 86 ADM/REG DATE : 11/18/16 MR#: [id number] REPORT SERV DATE: 11/19/16 DICTATED BY: TONY MCMANUS DATE: 11/19/16 REPORT STATUS : Draft TRANSCRIBED BY: MODL DATE: 11/19/16 INFECTIOUS DISEASE CONSULT DATE OF CONSULTATION: 11/19/2016 REASON FOR CONSULTATION: Recent UTI. HISTORY OF PRESENT ILLNESS: This is an 86-year-old man with a past medical history notable for hypertension, coronary artery disease, ischemic cardiomyopathy, pacemaker/AICD, chronic kidney disease, BPH, atrial fibrillation, hypotension, hyperlipidemia who was admitted to [facility] from 10/28/2016 through 11/05/2016 with presyncope, syncope symptoms and increasing falls. He underwent evaluation which included cardiac cath and echocardiogram. During this time, following the cardiac cath, he developed urinary retention and was seen by Dr. Birch of Urology. The source of the retention was felt to be multifactorial and recommendation was leave the More catheter in place for a voiding trial later. During this admission, the patient had a urine culture obtained on 10/31/2016 from the More catheter which grew E. coli and Proteus, and the patient was treated with Levaquin, but was not as best I can tell, discharged on antibiotics. The patient went to [facility]. History from the patient is somewhat difficult, but it sounds like he had his More catheter removed at one point for a brief period and it was put back in. The patient then was readmitted to the hospital with symptoms concerning for possible stroke. He has been evaluated by Neurology with imaging workup as outlined below and plans also are made for apparently a new battery for his pacemaker. The patient was seen by Dr. Azevedo of Urology today with plans to discontinue the More catheter in the morning and initiated voiding trial. The patient denies any recent fevers, chills, or sweats. However, he was apparently started back on antibiotics with amoxicillin on 11/15/2016. I am not sure exactly why. PAST MEDICAL HISTORY: As outlined above. In addition, he has had bilateral knee arthroplasties. ALLERGIES: AMIODARONE. PRESENT MEDICATIONS: Include amoxicillin, amiodarone, aspirin, Lipitor, Lotensin, Coreg, Lasix, Neurontin, magnesium oxide, Remeron, Protonix, Aldactone, Carafate, Flomax, Coumadin. SOCIAL HISTORY: Nonsmoker, nondrinker. FAMILY HISTORY: Noncontributory. REVIEW OF SYSTEMS: Otherwise negative. No nausea, vomiting, or diarrhea. PHYSICAL EXAMINATION: GENERAL: He is alert and in no acute distress. Consultation Report [address] [place]. [address] NAME: AMBER STERLING : 30 STATUS : ADM IN PAT#: [id number] AGE: 86 ADM/REG DATE : 11/18/16 MR#: [id number] REPORT SERV DATE: 11/19/16 DICTATED BY: TONY MCMANUS DATE: 11/19/16 REPORT STATUS : Draft TRANSCRIBED BY: SHARON DATE: 11/19/16 VITAL SIGNS: The patient is afebrile. Blood pressure 91/55, pulse 79, respiratory rate 16. HEAD AND NECK: Shows clear oral cavity. Supple neck. LUNGS: Clear to auscultation. CARDIAC: Without murmur, gallop, or rub. He has a pacemaker in the left upper chest. ABDOMEN: Soft and nontender. EXTREMITIES: Show no significant edema. He has a peripheral IV without phlebitis. LABORATORY STUDIES: White blood cell count 6.4, hemoglobin 10.8, platelets 198, creatinine 1.35 which is close to his baseline. Liver function tests normal. Albumin 2.9. Urinalysis on admission, small leukocyte esterase, 4 white blood cells. Urine culture negative at almost 24 hours of incubation. The patient had CT scan of the brain without IV contrast which showed no acute changes. CT scan of the lumbar spine without signs of infection. Chest x-ray, no acute changes. IMPRESSION: I do not see evidence of urinary tract infection at the present time and his culture from admission is negative from his More catheter. In addition, the urinalysis is unimpressive, especially for a specimen from the More catheter. PLAN: 1. I will discontinue amoxicillin. 2. Agree with attempt at removing the More and a voiding trial tomorrow. 3. No contraindication from Infectious Disease standpoint for battery replacement. JONATHON/SHARON Tony Mcmanus M.D. / [id number] CC: Lary Deras M.D.
--- NOTE | ~2016-11-18 | CN ---
Consultation Report [facility] [address] [facility] [place]. [address] NAME: AMBER STERLING : 30 STATUS : ADM IN PAT#: [id number] AGE: 86 ADM/REG DATE : 11/18/16 MR#: [id number] REPORT SERV DATE: 11/18/16 DICTATED BY: ALE TRIPP DATE: 11/18/16 REPORT STATUS : Draft TRANSCRIBED BY: MODCarlo DATE: 11/18/16 NEUROLOGY CONSULTATION DATE OF CONSULTATION: 11/18/2016 DESK PENS ASSEMBLER: Devonte Willis M.D. REASON FOR CONSULTATION: Possible stroke. HISTORY OF PRESENT ILLNESS: The patient is an 86-year-old male, who has been admitted to the hospital to have the battery replaced in his Bi-V pacemaker. While he is here, Dr. Willis was concerned that he may have possibly had a stroke in the last month because the patient has been dragging his right leg. When the patient was questioned extensively, he stated that one month ago he had a "gradual onset of left leg weakness." At first, he started to drag his right leg and gradually over the month has been unable to bear weight or even walk. According to the , he fell approximately a month ago and fractured his right humerus. He has not healed well and consequently has had limited range of motion with his right shoulder. The patient does not recall a certain time or event where he had a sudden onset of weakness on the right side. He denies any dysarthria, any aphasia, visual changes or confusion. PAST MEDICAL HISTORY: Ventricular tachycardia (Bi-V pacemaker/ICD), coronary artery disease, chronic systolic heart failure with an EF of 40%, urinary retention, atrial fibrillation (on Coumadin therapy), frequent UTI (Proteus and E. coli), hyperlipidemia, hypertension, BPH, GERD, and mild cognitive impairment. PAST SURGICAL HISTORY: Bilateral total knee arthroplasty, status post cholecystectomy, cardiac catheterization, and Bi-V pacemaker insertion. HOME MEDICATION LIST: Includes Tylenol p.r.n.; amiodarone 200 mg b.i.d.; amoxicillin 500 mg t.i.d. x10 days, which was started three days ago; Lotensin 10 mg at bedtime; Coreg 3.125 mg twice a day; clotrimazole cream topically b.i.d.; Lasix 20 mg Friday, Friday, Friday, Friday and Friday and 40 mg on Friday; Neurontin 100 mg b.i.d.; Razadyne ER 8 mg daily; [place] 5/325 mg every 6 hours; magnesium oxide 400 mg daily; Remeron 15 mg at bedtime; Zofran 4 mg q.4 hours p.r.n.; Protonix 40 mg daily; Zocor 20 mg at bedtime; Aldactone 12.5 mg daily; Carafate 1 g before meals and at bedtime; Flomax 0.4 mg at bedtime; and Coumadin 3 mg daily. INTOLERANCES: Amiodarone. SOCIAL HISTORY: The patient is . He lives with his . He has four children. He is retired from [employer]. He does not smoke, drink alcohol, or use illicits. FAMILY HISTORY: The patient's mother at the age of 86, cause unknown. Father in Consultation Report [address] [place]. [address] NAME: AMBER STERLING : 30 STATUS : ADM IN [facility]#: [id number] AGE: 86 ADM/REG DATE : 11/18/16 MR#: [id number] REPORT SERV DATE: 11/18/16 DICTATED BY: ALE TRIPP DATE: 11/18/16 REPORT STATUS : Draft TRANSCRIBED BY: SHARON DATE: 11/18/16 his 70s from heart disease. He has two half sisters and two half brothers. REVIEW OF SYSTEMS: See HPI for pertinent positives. PHYSICAL EXAMINATION: VITAL SIGNS: The patient is an 86-year-old male, who stands 5 feet 10 inches tall and weighs 174 pounds. He is afebrile. Heart rate 79, respiratory rate 18, O2 saturations on room air 97%, blood pressure 131/60. NEURO: The patient is alert. He is oriented x4. Pleasant, communicates appropriately. Pupils are 3 mm, PERRLA. Cranial nerves 2 through 12 are intact except he does have a right facial droop and slight tongue deviation to the right. He also does report slight diminished sensation on the right side of his face compared to the left. The patient is unable to perform pronator drift. He has limited range of motion in his right arm (due to recent fracture). He cannot perform [id number] with his right arm, but on the left, he demonstrates no ataxia. Upper extremity strength on the right is 2/5, on the left is 5/5. Upper DTRs are 2+ bilaterally. No reported sensory deficits. Lower extremity strength is 4/5 on the left and a 2/5 on the right. Unable to elicit patellar reflexes. Plantar reflexes are silent. The patient has decreased sensation from the toes to above the ankle on the left and from the toes to mid calf on the right. He has diminished vibratory and temperature sensation in the same distribution. Position sense is absent. NECK: No carotid bruits, JVD, or thyromegaly. CHEST: Lung sounds relatively clear. CARDIAC: Paced rhythm. There is no lab work or diagnostics on the chart at this time. NIH stroke scale is 6. ASSESSMENT/PLAN: 1. Possible stroke event which would be subacute. The patient is unable to get an MRI due to his Bi-V pacer. We will obtain a CT of the brain without contrast. PT/OT will be consulted. The patient will be started on aspirin 81 mg daily. He will continue his Coumadin therapy which pharmacy will dose according to a daily PT/INR. His Zocor will be changed to Lipitor 40 mg at bedtime, and he was counseled on risk factor reduction. 2. Possible right sciatica or even C-spine radiculopathy. The patient will undergo a CT of the L-spine and C-spine. 3. Peripheral neuropathy, etiology unknown. Lab work will be checked. The patient's Neurontin dose will be increased to 100 mg t.i.d. Thank you again for including us in consultation. We will follow with you. SONY/SHARON Ale Oates Consultation Report [place] [address] [place] [place]. [id number] NAME: AMBER STERLING : 30 STATUS : ADM IN PAT#: [id number] AGE: 86 ADM/REG DATE : 11/18/16 MR#: [id number] REPORT SERV DATE: 11/18/16 DICTATED BY: ALE TRIPP DATE: 11/18/16 REPORT STATUS : Draft TRANSCRIBED BY: MODL DATE: 11/18/16 KRIS Tripp / [id number] CC: Lary Deras M.D.
--- NOTE | ~2016-11-18 | CN ---
Consultation Report [address] [place]. [address] NAME: AMBER GARCIA : 30 STATUS : ADM IN PAT#: [id number] AGE: 86 ADM/REG DATE : 11/18/16 MR#: [id number] REPORT SERV DATE: 11/19/16 DICTATED BY: YOUNG FERMIN III DATE: 11/19/16 REPORT STATUS : Draft TRANSCRIBED BY: MODL DATE: 11/19/16 DATE OF CONSULTATION: REASON FOR CONSULATION: Urinary retention. HISTORY OF PRESENT ILLNESS: Mr. Garcia is an 86-year-old white gentleman who is admitted now with a possible stroke. He has an indwelling More catheter secondary to urinary retention. During a recent admission, he has been in a rehab facility when he started having signs and symptoms of a possible stroke. PAST MEDICAL HISTORY: Chronic kidney disease, BPH, elevated PSA, TIA, congestive heart block, atrial fib, esophageal strictures, hypertension, hyperlipidemia, vertigo, and gout. PAST SURGICAL HISTORY: Pacemaker placement and esophageal dilation. SOCIAL HISTORY: The patient does not drink, smoke, or use illicit drugs. ALLERGIES: AMIODARONE. HOME MEDICATIONS: Reviewed. PHYSICAL EXAMINATION: GENERAL: The patient is awake, alert, and conversant. : He does have a More catheter. There is some debris in the tubing. LABORATORY DATA: Lab work shows BUN and creatinine are 19 and 1.35. Urinalysis shows a large amount of blood and small amount of leukocyte esterase. Urine culture is pending. ASSESSMENT: 1. Urinary retention. 2. Possible urinary tract infection. PLAN: We will increase the Flomax to 2 daily and plan on a voiding trial in the future. PH/MODL Young Fermin III, M.D. / [id number] CC: Devonte Willis M.D. Consultation Report [address] [place]. [address] NAME: AMBER GARCIA : 30 STATUS : ADM IN PAT#: [id number] AGE: 86 ADM/REG DATE : 11/18/16 MR#: [id number] REPORT SERV DATE: 11/19/16 DICTATED BY: YOUNG FERMIN III DATE: 11/19/16 REPORT STATUS : Draft TRANSCRIBED BY: SHARON DATE: 11/19/16 Husam Eduardo M.D.
--- NOTE | ~2016-11-18 | DS ---
Discharge Summary [facility] [address] [facility] [place]. [address] NAME: AMBER STERLING : 30 STATUS : DIS IN PAT#: [id number] AGE: 86 ADM/REG DATE : 11/18/16 MR#: [id number] REPORT SERV DATE: 12/03/16 DICTATED BY: WILLIE WILLIS DATE: 12/02/16 REPORT STATUS : Draft TRANSCRIBED BY: SHARON DATE: 12/02/16 Data Collection from hospitalization DISCHARGE DIAGNOSES: 1. Congestive heart failure. 2. Persistent atrial fibrillation. 3. Acute kidney injury. 4. Peripheral neuropathy. 5. Right leg weakness. 6. Urinary retention. 7. Hypertension. 8. Hyperlipidemia. 9. Benign prostatic hypertrophy. 10.Gastroesophageal reflux disease. 11.Mild cognitive impairment. CONSULTATION: 1. Ale Jara [facility]. 2. Young Kelly M.D. 3. Shar Mcmanus M.D. 4. Cameron Staton M.D. PROCEDURES PERFORMED: 1. ICD implantation on 11/21/2016. 2. CT scan of the lumbar spine without contrast on 11/18/2016. 3. CT scan of the brain without contrast on 11/18/2016. 4. CT scan of the cervical spine without contrast on 11/18/2016. MEDICATIONS: Vicenta Aspirin 325 mg daily; Lipitor 40 mg at bedtime; Cordarone 200 mg twice a day; Lotensin 10 mg at bedtime; Coreg 3.125 mg twice a day; clotrimazole one application topically twice a day; Lasix 20 mg on Tuesdays, Wednesdays, Friday, Friday, and Friday and 40 mg on Friday and ; Razadyne ER 8 mg at bedtime; Mag-Ox 400 mg daily; Remeron 15 mg at bedtime; Protonix 40 mg before breakfast; Carafate 1 g before meals; Flomax 0.8 mg at 6:00 p.m. as instructed; Tylenol 650 mg every six hours as needed; [place] 5/325 one tablet every six hours as needed; and Zofran 4 mg every four hours as needed. CONDITION AT DISCHARGE: Stable. DISPOSITION: The patient was discharged to [facility] on a low-sodium, low- cholesterol diet with activities as instructed. He would follow up with me on 12/09/2016. HOSPITAL COURSE: This is an 86-year-old man who presented to the hospital to have the battery replaced in his biventricular pacemaker. There was concern that he may possibly have a stroke over the past month because he had been dragging his right leg. When we questioned the patient extensively, he said that about a month prior to this admission. He had the gradual onset of left leg weakness. At first, he started to drag his right leg and gradually over the past month, he was unable to bear weight or even walk. According to his , he fell approximately a month prior to this admission and fractured his right humerus. Discharge Summary [facility] [address] [facility] [place]. [address] NAME: AMBER STERLING : 30 STATUS : DIS IN PAT#: [id number] AGE: 86 ADM/REG DATE : 11/18/16 MR#: [id number] REPORT SERV DATE: 12/03/16 DICTATED BY: WILLIE WILLIS DATE: 12/02/16 REPORT STATUS : Draft TRANSCRIBED BY: SHARON DATE: 12/02/16 He has not healed well and consequently had limited range of motion of the right shoulder. He did not recall a certain time or event where he had a sudden onset of weakness on the right side. He was admitted to the hospital at this time for further evaluation and treatment. Upon admission, he was seen by Ael Jara regarding possible stroke. This would be considered subacute. The patient would be unable to have an MRI performed due to a biventricular pacemaker. A CT scan of the brain without contrast was requested. He was going to be started on daily aspirin. Coumadin therapy would be continued. Zocor was changed to Lipitor. He was felt to have possible right sciatica or even cervical spine radiculopathy. A CT scan of the lumbar and cervical spine was requested. The patient does have peripheral neuropathy of unknown etiology. Lab work was going to be checked. Neurontin dose was increased. The following day, he was evaluated by Occupational Therapy. INR level was 2.2. He was seen in consultation by Dr. Young Kelly regarding urinary retention. The patient has an indwelling More catheter secondary to urinary retention. During a recent admission, he had been in a rehab facility when he started having signs and symptoms of a possible stroke. Flomax was going to be increased. A voiding trial would be performed in the future. Urinalysis showed a large amount of blood and small amount of leukocyte esterase. Urine culture was pending. He was also seen by Dr. Shar Mcmanus regarding recent urinary tract infection. During his previous admission on 10/31/2016, urine culture obtained from the More catheter had grown E. coli and Proteus. The patient had been treated with Levaquin. Apparently, he has been started back on antibiotics with amoxicillin on 11/15/2016, but we were not sure exactly why. Amoxicillin was going to be discontinued. The More catheter was going to be removed the following day and a voiding trial would be performed. There was no contraindication from Infectious Disease standpoint for battery replacement. On 11/20/2016, INR level was 2.1. He was comfortable. He still complained that his right leg felt heavy, but he was able to get out of bed and out of chair, ambulate to the bathroom. CT scan of the lumbar spine without contrast had been performed as well as a CT scan of the brain without contrast and a CT scan of the cervical spine without contrast. CT scan of the lumbar spine had shown moderate focal central stenosis. CT scan of the brain had shown stable asymmetric enlargement of the right ventricle compared to the left, there were no acute changes. Fall precautions were in place. Neurontin was increased. Plans were being made for ICD generator replacement. The following day, he was seen by Dr. Cameron Staton. At this time, the patient denied any symptoms of significant pain in the legs, but he said the right leg greater than left leg felt heavy. He did have mild foot drop. We encouraged him to mobilize ad jluis. He felt there was no need for AFO at the present time. He would follow the patient as an outpatient as needed. On 11/21/2016, he underwent successful explantation and implantation of CHLORINE CELL TENDER-D device. Device function was within normal limits. INR level was 2. More catheter was replaced. Discharge planning was performed. He said he had some aching in the left upper chest at the biventricular ICD incision site. He also complained of some neuropathy in the feet. He was on amiodarone at this time. Coumadin was continued. Neurontin was increased. Flomax was increased. On 11/23/2016, he had no complaints except for weakness. He remained hemodynamically stable. Discharge instructions were given. Due to his improved and stable condition, he was discharged to [facility] with the above-stated instructions. Discharge Summary [address] [place]. [address] NAME: AMBER STERLING : 30 STATUS : DIS IN PAT#: [id number] AGE: 86 ADM/REG DATE : 11/18/16 MR#: [id number] REPORT SERV DATE: 12/03/16 DICTATED BY: WILLIE WILLIS DATE: 12/02/16 REPORT STATUS : Draft TRANSCRIBED BY: SHARON DATE: 12/02/16 Information collected by: Belen Ventura I submit the above information as my discharge summary. TG/SHARON Willie Willis M.D. / [id number] CC: Lary Deras M.D. James Jolley II, M.D. [facility] Lary Limon III, M.D.
[~2016-11-18 10:23] MED LIST changes: +8 HOUR650 MG PO; +B121000P SC; +C1 PO; +COLCH6 PO; +COUMADIN3 MG PO; +L40 PO; +LOTRIMIN-MYCELE15 GM TOP; +MOMUD PO; +NORCO1 TA1 PO; +NORV5 PO; +RAZAER8 PO; +REM15 PO; +TRAZ50 PO; +ULTRAM50 PO
[2016-11-18] MEDS ORDERED: CORDARONE PO (11:33)
[2016-11-18] MEDS ORDERED: AMOXIL500 MG PO (11:34)
[2016-11-18] MEDS ORDERED: LOTE10 PO (11:35)
[2016-11-18] MEDS ORDERED: ASABAYER PO (11:35)
[2016-11-18] MEDS ORDERED: COREG3 PO (11:36)
[2016-11-18] MEDS ORDERED: CLORTIMAZOLE EX (11:36)
[2016-11-18] MEDS ORDERED: L20 PO (11:37)
[2016-11-18] MEDS ORDERED: NEUR300 PO (11:37)
[2016-11-18] MEDS ORDERED: L40 PO (11:37)
[2016-11-18] MEDS ORDERED: RAZAER8 PO (11:38)
[2016-11-18] MEDS ORDERED: PRILOSEC OTC20 MG PO (11:38)
[2016-11-18] MEDS ORDERED: MAGOX4 PO (11:38)
[2016-11-18] MEDS ORDERED: REM15 PO (11:38)
[2016-11-18] MEDS ORDERED: SUCR PO (11:39)
[2016-11-18] MEDS ORDERED: FLOMAX4 PO (11:39)
[2016-11-18] MEDS ORDERED: SPIRO25 PO (11:39)
[2016-11-18] MEDS ORDERED: LIPITOR40 PO (11:39)
[2016-11-18] MEDS ORDERED: C25 PO (11:40)
[2016-11-18] MEDS ORDERED: NORCO1 TA1 PO (11:40)
[2016-11-18] MEDS ORDERED: ZOFRAN4 PO (11:41)
[2016-11-18] MEDS ORDERED: 8 HOUR650 MG PO (11:41)
[2016-11-18 14:41] LABS: BASOPHILS 0.3 %; BASOPHILS ABSOLUTE 0.02 10/3/uL (0.0-0.16); EOSINOPHILS 2.3 %; EOSINOPHILS ABSOLUTE 0.15 10/3/uL (0.0-0.53); HEMATOCRIT 33.9 % (40.0-51.0); HEMOGLOBIN 10.8 g/dL (13.6-17.8); IMMATURE GRANULOCYTES 0.5 %; IMMATURE GRANULOCYTES ABSOLUTE 0.03 10/3/uL (0.0-0.11); LYMPHOCYTES 26.4 %; MEAN CORPUS HGB CONC 31.9 g/dL (32.0-36.0); MEAN CORPUSCULAR HEMOGLOB 27.1 pg (26.0-34.0); MEAN CORPUSCULAR VOLUME 85.2 fL (80-100); MEAN PLATELET VOLUME 9.2 fL (9.2-13.0); MONOCYTES 8.9 %; MONOCYTES ABSOLUTE 0.57 10/3/uL (0.21-1.20); NEUTROPHILS 61.6 %; NEUTROPHILS ABSOLUTE 3.97 10/3/uL (2.02-8.40); PLATELET COUNT 198 10/3/uL (150-400); RBC DISTRIBUTION WIDTH 15.4 % (12.0-16.0); RED CELL COUNT 3.98 10/6/uL (4.7-6.1); WHITE BLOOD CELLS 6.4 10/3/uL (4.5-10.5)
[2016-11-18 14:43] LABS: MANUAL DIFF NO %
[2016-11-18 14:47] LABS: INTERNATIONAL NORMAL RATI 2.1 UNITS (-)
[2016-11-18 14:49] LABS: PROTIME (NOT ORD) 23.5 SEC (12.0-14.5)
[2016-11-18 14:56] LABS: ALBUMIN 2.9 G/DL (3.5-5.0); BUN (BLOOD UREA NITROGEN) 19 MG/DL (6-23); CALCIUM, SERUM 8.8 MG/DL (8.5-10.4); CHLORIDE, SERUM 104 MMOL/L (96-112); CHOLESTEROL 142 MG/DL (< 200); CO2 (CARBON DIOXIDE) 28 MMOL/L (24-34); CREATININE 1.35 MG/DL (0.70-1.30); GFR AFRICAN AMERICAN 55 ML/MIN (>=60); GFR NON AFRICAN AMERICAN 47 ML/MIN (>=60); GLUCOSE, SERUM 102 MG/DL (60-99); POTASSIUM, SERUM 3.6 MMOL/L (3.5-5.3); SGOT(AST) 16 U/L (5-40); SODIUM, SERUM 141 MMOL/L (135-148)
[2016-11-18 15:21] LABS: A/G RATIO 0.7 (0.7-1.9); FREE T4 1.36 NG/DL (0.76-1.46); GLOBULIN 4.1 G/DL (2.5-4.1); SGPT(ALT) 16 U/L (5-65); TOTAL BILIRUBIN 0.7 MG/DL (0-1.2); TRIGLYCERIDE 91 MG/DL (< 150)
[2016-11-18 15:22] LABS: ALKALINE PHOSPHATASE 83 U/L (45-117); CHOL/HDL RATIO(NOT ORDER) 2.4 (0-5); HDL CHOLESTEROL 60 MG/DL (> 39); LDL CHOLESTEROL 64 MG/DL (< 130); NON-HDL CHOLESTEROL 82 MG/DL (< 160)
[2016-11-18 16:00] LABS: ASCORBIC ACID (UR NOT ORDER) NEG (NEG); BILIRUBIN, URINE NEGATIVE (NEG); KETONE, URINE NEGATIVE (NEG); LEUKOCYTE ESTERASE(NOT OR SMALL (NEG); WBC (NOT ORDERED) (RFLEX) 4 (0-5)
[2016-11-19 04:49] LABS: INTERNATIONAL NORMAL RATI 2.2 UNITS (-); PROTIME (NOT ORD) 24.1 SEC (12.0-14.5)
[2016-11-20 05:57] LABS: BUN (BLOOD UREA NITROGEN) 20 MG/DL (6-23); CHLORIDE, SERUM 107 MMOL/L (96-112); CO2 (CARBON DIOXIDE) 25 MMOL/L (24-34); CREATININE 1.44 MG/DL (0.70-1.30); GFR AFRICAN AMERICAN 51 ML/MIN (>=60); GFR NON AFRICAN AMERICAN 44 ML/MIN (>=60); GLUCOSE, SERUM 81 MG/DL (60-99); POTASSIUM, SERUM 4.2 MMOL/L (3.5-5.3); SODIUM, SERUM 142 MMOL/L (135-148)
[2016-11-20 05:58] LABS: INTERNATIONAL NORMAL RATI 2.1 UNITS (-); PROTIME (NOT ORD) 23.4 SEC (12.0-14.5)
[2016-11-21 06:29] LABS: INTERNATIONAL NORMAL RATI 2.1 UNITS (-); PROTIME (NOT ORD) 23.3 SEC (12.0-14.5)
[2016-11-21 06:30] LABS: BASOPHILS 0.5 %; BASOPHILS ABSOLUTE 0.03 10/3/uL (0.0-0.16); EOSINOPHILS 3.6 %; EOSINOPHILS ABSOLUTE 0.22 10/3/uL (0.0-0.53); HEMATOCRIT 30.8 % (40.0-51.0); IMMATURE GRANULOCYTES 0.7 %; IMMATURE GRANULOCYTES ABSOLUTE 0.04 10/3/uL (0.0-0.11); LYMPHOCYTES 29.9 %; LYMPHOCYTES ABSOLUTE 1.83 10/3/uL (0.67-4.30); MEAN CORPUS HGB CONC 32.5 g/dL (32.0-36.0); MEAN CORPUSCULAR HEMOGLOB 27.2 pg (26.0-34.0); MEAN CORPUSCULAR VOLUME 83.9 fL (80-100); MEAN PLATELET VOLUME 9.3 fL (9.2-13.0); MONOCYTES 10.8 %; MONOCYTES ABSOLUTE 0.66 10/3/uL (0.21-1.20); NEUTROPHILS 54.5 %; NEUTROPHILS ABSOLUTE 3.34 10/3/uL (2.02-8.40); PLATELET COUNT 179 10/3/uL (150-400); RBC DISTRIBUTION WIDTH 15.7 % (12.0-16.0); RED CELL COUNT 3.67 10/6/uL (4.7-6.1); WHITE BLOOD CELLS 6.1 10/3/uL (4.5-10.5)
[2016-11-21 06:37] LABS: MANUAL DIFF NO %
[2016-11-21 06:56] LABS: BUN (BLOOD UREA NITROGEN) 25 MG/DL (6-23); CALCIUM, SERUM 9.1 MG/DL (8.5-10.4); CHLORIDE, SERUM 106 MMOL/L (96-112); CO2 (CARBON DIOXIDE) 25 MMOL/L (24-34); CREATININE 1.55 MG/DL (0.70-1.30); GFR AFRICAN AMERICAN 46 ML/MIN (>=60); GFR NON AFRICAN AMERICAN 40 ML/MIN (>=60); GLUCOSE, SERUM 90 MG/DL (60-99); POTASSIUM, SERUM 4.2 MMOL/L (3.5-5.3); SODIUM, SERUM 143 MMOL/L (135-148)
[2016-11-22 04:13] LABS: PROTIME (NOT ORD) 22.1 SEC (12.0-14.5)
[2016-11-23 04:38] LABS: PROTIME (NOT ORD) 22.8 SEC (12.0-14.5)
[2016-11-23 05:20] LABS: CALCIUM, SERUM 8.7 MG/DL (8.5-10.4); CHLORIDE, SERUM 103 MMOL/L (96-112); CO2 (CARBON DIOXIDE) 25 MMOL/L (24-34); CREATININE 1.44 MG/DL (0.70-1.30); GFR AFRICAN AMERICAN 51 ML/MIN (>=60); GFR NON AFRICAN AMERICAN 44 ML/MIN (>=60); GLUCOSE, SERUM 94 MG/DL (60-99); POTASSIUM, SERUM 4.2 MMOL/L (3.5-5.3); SODIUM, SERUM 138 MMOL/L (135-148)
[2016-11-23 05:25] LABS: BUN (BLOOD UREA NITROGEN) 21 MG/DL (6-23)
[2017-02-28] MEDS ORDERED: L20 PO (13:48)
[2017-02-28] MEDS ORDERED: C1 PO (13:58)
[2017-02-28] MEDS ORDERED: REM15 PO (14:00)
[2017-02-28] MEDS ORDERED: DUONEB INH (14:03)
[2017-02-28] MEDS ORDERED: SILTUSSIN100 MG/5 M PO (14:05)
[2017-02-28] MEDS ORDERED: ULTRAM50 PO (14:06)
[2017-02-28] MEDS ORDERED: MOMUD PO (14:06)
[2017-02-28] MEDS ORDERED: DSS PO (14:07)
[2017-02-28] MEDS ORDERED: CYMBALTA30 PO (14:11)
== END 2016-11-23 15:14 | DRG 245 ==
LOC: 5NO 10:23
PROVIDERS: Internal Medicine Clinical Cardiac Electrophysiology; Nurse Practitioner
PROC: 0JPT0PZ Removal of Cardiac Rhythm Related Device from Trunk Subcutaneous Tissue and Fascia, Open Approach (ICD-10-PCS; principal; 2016-11-21)
PROC: 0JH609Z Insertion of Cardiac Resynchronization Defibrillator Pulse Generator into Chest Subcutaneous Tissue and Fascia, Open Approach (ICD-10-PCS; 2016-11-21)
DX: T82.191A Other mechanical complication of cardiac pulse generator (battery), initial encounter (principal); N17.9 Acute kidney failure, unspecified; I42.0 Dilated cardiomyopathy; I50.42 Chronic combined systolic (congestive) and diastolic (congestive) heart failure; I11.0 Hypertensive heart disease with heart failure; I48.1 Persistent atrial fibrillation; N39.0 Urinary tract infection, site not specified; G62.9 Polyneuropathy, unspecified; R33.9 Retention of urine, unspecified; Z96.653 Presence of artificial knee joint, bilateral; M51.35 Other intervertebral disc degeneration, thoracolumbar region; I25.10 Atherosclerotic heart disease of native coronary artery without angina pectoris; E78.5 Hyperlipidemia, unspecified; J44.9 Chronic obstructive pulmonary disease, unspecified
CPT/HCPCS: 33264; 70450; 71010; 72125; 72131; 80048; 80053; 80061; 81001; 82607; 82746; 83036; 84439; 84443; 85025; 85610; 87086; 93005; 93283; 93290; 97110-GP; 97116-GP; 97161-GP; 97165-GO; 97535-GO; A9270-GY; C1882; G0463; G8978-CK-GP; G8979-CJ-GP; G8987-CK-GO; G8988-CJ-GO; J0690; J2370